=== PATIENT | male | born 1940 | race Caucasian/White ===

== ENCOUNTER → 2017-02-17 | Outpatient (CLI) | payer OTHER, MEDICARE | LOC: BMCIMAGING 08:18 | PROVIDERS: ATTEND Internal Medicine | DX: I65.22 Occlusion and stenosis of left carotid artery (principal) ==

== ENCOUNTER → 2017-02-26 | Outpatient (CLI) | payer OTHER, MEDICARE ==
[~2017-02-26] MED LIST: GADOBUTROL 10 ML VIAL IVP ONE
[2017-02-26 16:06] LABS: CREATININE 1.5 mg/dL (0.7-1.3)
== END ==
LOC: FIMAGING 15:22
PROVIDERS: ATTEND Internal Medicine
DX: R94.02 Abnormal brain scan (principal); R51 Headache
CPT/HCPCS: 70553; A9585

== ENCOUNTER → 2017-05-20 | Outpatient (CLI) | payer OTHER, MEDICARE | LOC: BMCIMAGING 11:32 | PROVIDERS: ATTEND Internal Medicine | DX: S13.150A Subluxation of C4/C5 cervical vertebrae, initial encounter (principal); S13.160A Subluxation of C5/C6 cervical vertebrae, initial encounter; M50.30 Other cervical disc degeneration, unspecified cervical region; M12.88 Other specific arthropathies, not elsewhere classified, other specified site ==

== ENCOUNTER → 2018-10-21 | Outpatient (CLI) | payer OTHER, MEDICARE | LOC: BMCIMAGING 14:45 ==